=== PATIENT | female | born 1980 | race Caucasian/White ===

== ENCOUNTER → 2020-02-28 08:31 | Outpatient (BNVA) | payer OTHER, SELFPAY | PROVIDERS: PCP Internal Medicine; Visit Provider Physician Assistant | DX: Z76.89 Persons encountering health services in other specified circumstances (principal) ==

== ENCOUNTER → 2020-03-11 12:28 | Outpatient (BNVA) | payer OTHER, SELFPAY | PROVIDERS: PCP Internal Medicine; Visit Provider Physician Assistant | DX: K29.70 Gastritis, unspecified, without bleeding (principal); K21.9 Gastro-esophageal reflux disease without esophagitis; K20.90 Esophagitis, unspecified without bleeding | CPT/HCPCS: 99202 ==

== ENCOUNTER → 2020-03-24 08:17 | Outpatient (BNVA) | payer OTHER, SELFPAY | PROVIDERS: PCP Internal Medicine; Visit Provider Surgery ==

== ENCOUNTER 2020-04-02 09:06 | Outpatient (REF) | payer OTHER, SELFPAY ==
--- NOTE | ~2020-04-02 | XR_ITS ---
EXAMINATION: XR CHEST CLINICAL INFORMATION: Shortness of breath COMPARISON: None TECHNIQUE: 2 views of the chest were obtained. FINDINGS: There are increased linear markings seen in the left perihilar midlung questionable for atelectasis or small infiltrate. There is also question of hilar lymphadenopathy, particularly on the lateral view. The heart does not appear enlarged. Mediastinal contours are unremarkable. The lungs are otherwise clear. There is no pleural effusion or pneumothorax. Bony structures are unremarkable. XR/XR chest 2V IMPRESSION: Question hilar lymphadenopathy and left perihilar midlung atelectasis or small infiltrate. If here are symptoms of infection, follow-up chest x-ray following treatment would be recommended. If radiographic abnormality fails to resolve or there is no clinical suspicion of infection at this time, chest CT scan with IV contrast would be recommended.
--- NOTE | 2020-04-02 09:18 | ECG_ITS ---
Test Reason : SOB Blood Pressure : / mmHG Vent. Rate : 083 BPM Atrial Rate : 083 BPM P-R Int : 164 ms QRS Dur : 084 ms QT Int : 384 ms P-R-T Axes : 054 054 024 degrees QTc Int : 451 ms Normal sinus rhythm Normal ECG No previous ECGs available Referred By: Venecia Rush Electronically Signed By:Favian Sanchez
[2020-04-02 09:54] LABS: MANUAL DIFF FLAG NO
[2020-04-02 10:03] LABS: Basophils Absolute Auto 0.1 X10*3/uL (0.0-0.2); Basophils Percent Auto 0.6 % (0-2); Eosinophils Absolute Auto 0.3 X10*3/uL (0.0-0.4); Eosinophils Percent Auto 3.2 % (0-4); Hematocrit 43.1 % (37-47); Hemoglobin 13.9 g/dl (12.0-16.0); Imm Gran Abs Auto 0.05 X10*3/uL (0.00-0.03); Imm Gran Pct Auto 0.5 % (0.0-0.4); Lymphocytes Absolute Auto 2.3 X10*3/uL (1.2-4.9); Lymphocytes Percent Auto 21.8 % (20-40); Mean Corpuscular HGB Conc 32.3 g/dl (31.0-35.0); Mean Corpuscular Hemoglobin 30.6 pg (27.0-33.0); Mean Corpuscular Volume 94.9 fL (80-98); Mean Platelet Volume 9.8 fL (9.4-12.3); Monocytes Absolute Auto 0.7 X10*3/uL (0.1-1.2); Monocytes Percent Auto 6.7 % (2-11); Neutrophils Percent Auto 67.2 % (45-73); Platelet Count 441 X10*3/uL (160-400); Red Blood Count 4.54 X10*6/uL (4.20-5.50); Red Cell Distribution Width 13.2 % (11.0-16.0); White Blood Count 10.4 X10*3/uL (4.8-10.8)
[2020-04-02 10:24] LABS: Estimated Average Glucose 94 mg/dL; Hemoglobin A1c % 4.9 %
[2020-04-02 10:34] LABS: Alanine Aminotransferase 34 U/L (0-31); Albumin Level 4.5 g/dL (3.5-5.0); Alkaline Phosphatase 89 U/L (39-117); Anion Gap 12 (12-20); Aspartate Amino Transferase 21 U/L (5-31); Bilirubin Total 0.6 mg/dL (0.0-1.0); Blood Urea Nitrogen 13 mg/dL (9-16); C Reactive Protein 1.02 mg/dL (< or = 0.50); Calcium 9.2 mg/dL (8.4-10.2); Carbon Dioxide 26 mmol/L (22-29); Chloride 106 mmol/L (96-108); Cholesterol 151 mg/dL; Estimated Glomerular Filt Rate 52; Glucose Fasting 101 mg/dL (60-99); HDL Cholesterol 26 mg/dL; Iron 87 mcg/dL (30-160); LDL Cholesterol Calculated 81 mg/dl; Percent Iron Saturation 26 % (15-50); Potassium 5.1 mmol/L (3.3-5.1); Sodium 139 mmol/L (135-145); Total Iron Binding Capacity 337 mcg/dL (228-428); Total Protein 7.4 g/dL (6.5-8.0); Triglycerides 222 mg/dL; Unsaturated Iron Binding 250 ug/dL
[2020-04-02 10:47] LABS: Ferritin 63 ng/mL (10-122); TSH reflex Free T4 0.64 uIU/mL (0.32-4.0); Vitamin D 25-OH Total 20.4 ng/mL (>30)
[2020-04-02 11:09] LABS: Folate 13.8 ng/mL (> or = 4.0); Vitamin B12 772 pg/mL (200-900)
[2020-04-03 06:31] LABS: Insulin Level Total 18.2 uIU/mL
[2020-04-04 10:37] LABS: Calcium (PTHI) 9.3 mg/dL (8.6-10.2); PTHI 38 pg/mL (14-64)
[2020-04-05 13:02] LABS: Vitamin B1 <6 nmol/L (8-30)
[2020-04-05 22:52] LABS: Vitamin A 47 mcg/dL (38-98)
[2020-04-08 01:17] LABS: Zinc 127 mcg/dL (60-130)
== END 2020-04-02 09:07 | disposition home or self-care (01) ==
LOC: HO.LAB 09:06
PROVIDERS: Visit Provider Physician Assistant
DX: K20.90 Esophagitis, unspecified without bleeding (principal); K21.9 Gastro-esophageal reflux disease without esophagitis; K29.70 Gastritis, unspecified, without bleeding; Z68.41 Body mass index [BMI] 40.0-44.9, adult; E66.01 Morbid (severe) obesity due to excess calories; R06.02 Shortness of breath
CPT/HCPCS: 36415; 71046; 80053; 80061; 82306; 82607; 82728; 82746; 83036; 83525; 83540; 83970; 84425; 84443; 84590; 84630; 85025; 86140; 93005

== ENCOUNTER 2020-04-07 09:36 | Outpatient (REF) | payer OTHER, SELFPAY ==
--- NOTE | ~2020-04-07 | US_ITS ---
EXAMINATION: US COMPLETE ABDOMEN WITH LIVER ELASTOGRAPHY CLINICAL INFORMATION: Obesity COMPARISON: None. TECHNIQUE: Real-time imaging of the abdominal viscera. Noninvasive ultrasound liver fibrosis assessment is performed using Mirlande ElastPQ point quantification shear wave elastography (pSWE) with a C5-2 MHz transducer. Multiple elastography samples are obtained. FINDINGS: PANCREAS: Normal. ABDOMINAL AORTA: The proximal, middle, and distal aortic segments are normal in caliber. INFERIOR VENA CAVA: Visualized portions are normal. LIVER: Liver echotexture is increased. The liver is normal in size and contour. No focal lesion or intrahepatic biliary duct dilatation. The right lobe measures 15.5 cm in length. The left lobe measures 10.3 cm in length. Portal flow is normal/hepatopedal Shear wave liver elastography median stiffness is 1.5 m/s (reference: normal median stiffness is 1.3 m/s or less). IQR/median stiffness to assess sampling precision is 0.1 (reference: good quality data set is IQR/median stiffness of 0.15 or less). GALLBLADDER: There are gallstones in the gallbladder. The gallbladder is normal in size. The gallbladder wall thickness is normal. There is no pericholecystic fluid. COMMON BILE DUCT: Normal in caliber measuring 0.2 cm in diameter. RIGHT KIDNEY: Normal. No hydronephrosis. No renal calculi or focal parenchymal lesions. The kidney measures 11.5 cm in maximum dimension. LEFT KIDNEY: Normal. No hydronephrosis. No renal calculi or focal parenchymal lesions. The kidney measures 9.6 cm in maximum dimension. SPLEEN: The spleen is slightly enlarged.. The spleen measures 14 cm in maximum dimension. FREE FLUID: None. US/US abdomen comp w elastography IMPRESSION: 1. Impression: Echogenic liver probably representing fatty infiltration. Gallstones. Enlarged spleen. 2. Liver elastography: Liver stiffness is slightly elevated but not suggestive of compensated advanced chronic liver disease. REFERENCE: Society of Radiologists in Ultrasound Liver Stiffness Thresholds (2020): LIVER STIFFNESS THRESHOLDS: *Liver Stiffness equal or less than 1.3 m/s: High probability of being normal. *Liver Stiffness less than 1.7 m/s: In the absence of other known clinical signs, rules out compensated advanced chronic liver disease. *Liver Stiffness 1.7-2.1 m/s: Suggestive of compensated advanced chronic liver disease but need further test for confirmation. *Liver Stiffness over 2.1 m/s: Rules in compensated advanced chronic liver disease. *Liver Stiffness over 2.4 m/s: Suggestive of clinically significant portal hypertension. QUALITY OF DATA SET: *IQR/Median value equal or less than 0.15 implies a quality data set. *IQR/Median value over 0.15 implies a poor quality data set. SIGNIFICANT CHANGE FROM PRIOR EXAM: Significant change if liver stiffness measurement is 10% or greater from prior exam. OTHER CONSIDERATIONS: The stage of liver fibrosis may be overestimated in the setting of acute hepatitis, liver inflammation, elevated liver function tests, hepatic vascular congestion, obstructive cholestasis, non-fasting state, and infiltrative diseases such as amyloidosis and lymphoma. In some patients with NAFLD, the liver stiffness thresholds for compensated advanced chronic liver disease may be lower. In causes other than viral hepatitis and NAFLD, liver stiffness thresholds are not well established.
== END 2020-04-07 09:37 | disposition home or self-care (01) ==
LOC: HO.US 09:36
PROVIDERS: Visit Provider Surgery
DX: Z01.818 Encounter for other preprocedural examination (principal); E66.01 Morbid (severe) obesity due to excess calories; K21.9 Gastro-esophageal reflux disease without esophagitis
CPT/HCPCS: 76705; 76981

== ENCOUNTER → 2020-04-08 08:12 | Outpatient (BNVA) | payer OTHER, SELFPAY | PROVIDERS: PCP Internal Medicine; Visit Provider Dietitian, Registered ==

== ENCOUNTER 2020-04-14 08:37 | Outpatient (REF) | payer OTHER, SELFPAY ==
--- NOTE | ~2020-04-14 | FL_ITS ---
EXAMINATION: XR GI SERIES CLINICAL INFORMATION: Gastroesophageal reflux disease without esophagitis. COMPARISON: None TECHNIQUE: Upper GI air contrast study was performed in upright and lying position. FINDINGS: Following oral administration of thick barium effervescent granules, there is normal propagation bolus from the oral cavity through the pharynx, esophagus into stomach without any evidence of obstruction, narrowing, or stricture. The course, caliber and peristalsis of the stomach, duodenal bulb and the sweep is normal. On placing patient supine and prone lying, there is a mild gastroesophageal reflux without hiatal hernia. The mucosal pattern of the stomach and the duodenum is normal. FLUOROSCOPY TIME: 1.8 minutes DOSE AREA PRODUCT: 33.221 uGy-m2 (microgray-meter squared) FL/FL upper GI series IMPRESSION: Mild gastroesophageal reflux without hiatal hernia.
[2020-04-15 11:41] LABS: H Pylori Breath Test NOT DETECTED (NOT DETECTED)
== END 2020-04-14 08:38 | disposition home or self-care (01) ==
LOC: HO.XRAY 08:37
PROVIDERS: Visit Provider Surgery
DX: Z01.818 Encounter for other preprocedural examination (principal); E66.01 Morbid (severe) obesity due to excess calories; K21.9 Gastro-esophageal reflux disease without esophagitis; K20.90 Esophagitis, unspecified without bleeding; K29.70 Gastritis, unspecified, without bleeding
CPT/HCPCS: 74240; 83013; 99211

== ENCOUNTER → 2020-04-18 08:16 | Outpatient (BNVA) | payer OTHER, SELFPAY | PROVIDERS: PCP Internal Medicine; Visit Provider Surgery ==

== ENCOUNTER 2020-04-22 10:19 | Outpatient (REF) | payer OTHER, SELFPAY ==
--- NOTE | ~2020-04-22 | CT_ITS ---
EXAMINATION: CT CHEST WITH CONTRAST CLINICAL INFORMATION: Localized enlarged lymph nodes. COMPARISON: Chest radiographs dated 04/02/2020. TECHNIQUE: Multidetector volumetric CT imaging of the chest was obtained after the administration of 65 mL of Omnipaque 350 intravenous contrast without immediate adverse reactions. Axial MIP volume rendering provided. Sagittal and coronal reformatted images were obtained. This CT examination was performed using dose optimization techniques as appropriate, variously including the following: *Automated exposure control *Adjustment of mA and/or kV according to patient size (this includes techniques or standardized protocols for targeted exams where dose is matched to indication/reason for exam; i.e. extremities or head) *Use of iterative reconstruction technique DLP: 188 mGy-cm FINDINGS: LUNGS/PLEURA/AIRWAYS: No significant/suspicious pulmonary nodules are seen. Minimal linear atelectasis versus scarring is seen in the right upper lobe at the level the minor fissure without abnormality. There are no pleural effusions. The airways are patent. MEDIASTINUM: The mediastinum is normal. PLEURA: There is no pleural effusion. No pleural mass or thickening. AXILLA: No lymphadenopathy. UPPER ABDOMEN: Diffuse decreased hepatic attenuation and enlargement. Incomplete visualization of the spleen with borderline enlargement measuring approximately 13 cm. No other significant upper abdominal abnormality. OSSEOUS STRUCTURES: Unremarkable. CT/CT chest w con IMPRESSION: 1. Minimal linear atelectasis versus scarring in the right upper lobe. No suspicious pulmonary nodules. No acute cardiopulmonary process. 2. Hepatic steatosis and enlargement and borderline splenic enlargement.
== END 2020-04-22 10:20 | disposition home or self-care (01) ==
LOC: HO.CT 10:19
PROVIDERS: Visit Provider Surgery
DX: R59.0 Localized enlarged lymph nodes (principal)
CPT/HCPCS: 71260; Q9967

== ENCOUNTER 2020-04-24 08:05 | Day surgery (SDC) | payer OTHER, SELFPAY ==
[2020-04-18 11:58] LABS: MANUAL DIFF FLAG NO
[2020-04-18 12:02] LABS: Basophils Percent Auto 0.3 % (0-2); Eosinophils Absolute Auto 0.2 X10*3/uL (0.0-0.4); Eosinophils Percent Auto 2.1 % (0-4); Hematocrit 43.8 % (37-47); Hemoglobin 14.6 g/dl (12.0-16.0); Imm Gran Abs Auto 0.04 X10*3/uL (0.00-0.03); Imm Gran Pct Auto 0.3 % (0.0-0.4); Lymphocytes Absolute Auto 2.7 X10*3/uL (1.2-4.9); Mean Corpuscular HGB Conc 33.3 g/dl (31.0-35.0); Mean Corpuscular Hemoglobin 31.4 pg (27.0-33.0); Mean Corpuscular Volume 94.2 fL (80-98); Mean Platelet Volume 9.8 fL (9.4-12.3); Monocytes Absolute Auto 0.9 X10*3/uL (0.1-1.2); Monocytes Percent Auto 7.8 % (2-11); Neutrophils Absolute Auto 7.7 X10*3/uL (2.0-8.3); Neutrophils Percent Auto 66.5 % (45-73); Platelet Count 388 X10*3/uL (160-400); Red Blood Count 4.65 X10*6/uL (4.20-5.50); Red Cell Distribution Width 12.8 % (11.0-16.0); White Blood Count 11.5 X10*3/uL (4.8-10.8)
[2020-04-18 12:07] LABS: Prothrombin Time 12.2 SEC (10.8-13.0)
[2020-04-18 12:10] LABS: Partial Thromboplastin Time 37.5 SEC (24.1-38.0)
[2020-04-18 12:34] LABS: Alanine Aminotransferase 30 U/L (0-31); Albumin Level 4.6 g/dL (3.5-5.0); Alkaline Phosphatase 89 U/L (39-117); Anion Gap 14 (12-20); Aspartate Amino Transferase 19 U/L (5-31); Bilirubin Total 0.3 mg/dL (0.0-1.0); Blood Urea Nitrogen 12 mg/dL (9-16); Calcium 9.1 mg/dL (8.4-10.2); Carbon Dioxide 24 mmol/L (22-29); Chloride 106 mmol/L (96-108); Estimated Glomerular Filt Rate 59; Glucose Random 100 mg/dL (60-115); Potassium 4.5 mmol/L (3.3-5.1); Sodium 139 mmol/L (135-145); Total Protein 7.4 g/dL (6.5-8.0)
--- NOTE | 2020-04-23 09:47 | HO.ANESPROP2 ---
Documented by User: Rhonda Jimenez 04/23/20 09:48 HPI - Anesthesia Eval Consult details Narrative: 40yo F for Cholecystectomy Laparoscopic PMFSH Active Problems Active Problems: All Active Problems (Updated 04/18/20 @ 11:11 by Ata Pedro MD) BMI 38.0-38.9,adult (Acute) Obesity (Acute) Nausea (Acute) Cholelithiasis (Acute) Vitamin B1 deficiency (Acute) Hilar lymphadenopathy (Acute) Vitamin D deficiency (Acute) Depression (Acute) Esophagitis (Acute) GERD (gastroesophageal reflux disease) (Acute) Gastritis (Acute) BMI 40.0-44.9, adult (Acute) Morbid obesity (Acute) Past Medical History Medical History Asthma BMI 40.0-44.9, adult Depression Esophagitis Gastritis GERD (gastroesophageal reflux disease) Morbid obesity Family History Family History Mother Bullous emphysema Diabetes Heart disease Father Heart disease Diabetes Brother No problems noted. Sister No problems noted. Son No problems noted. Son No problems noted. Surgical History Surgical History Hx of section Hx of endoscopy Social History Social History Alcohol intake: never Smoking Status: Former smoker Smoking Quit Date: 04/21/20 Use of substances other than those prescribed or required for medical reasons: No Advance Directives: No Advance Directives Information Provided: Yes Meds Allergies Allergy/AdvReac Type Severity Reaction Status Date / Time No Known Allergies Allergy Verified 04/24/20 08:37 Home Medications Medication Instructions Recorded Confirmed Last Taken Type crisaborole 2 % topical ointment TOPICAL BID 03/11/20 03/24/20 Unknown History folic acid 1 mg tablet 1 mg PO DAILY 03/11/20 03/24/20 Unknown History nicotine (polacrilex) 4 mg gum 4 mg PO Q2H 03/11/20 03/24/20 Unknown History pantoprazole 40 mg tablet,delayed 40 mg PO DAILY 03/11/20 03/24/20 Unknown History release Exam Exam Date and Time: April 23, 2020 0947 Pertinent Lab Results Pertinent Lab Results: Laboratory Tests 04/18/20 04/18/20 04/18/20 11:28 11:45 11:45 WBC 11.5 H RBC 4.65 Hgb 14.6 Hct 43.8 MCV 94.2 MCH 31.4 MCHC 33.3 RDW 12.8 Plt Count 388 MPV 9.8 Immature Gran % (Auto) 0.3 Neut % (Auto) 66.5 Lymph % (Auto) 23.0 [place] % (Auto) 7.8 Eos % (Auto) 2.1 Baso % (Auto) 0.3 Lymph # (Auto) 2.7 [place] # (Auto) 0.9 Eos # (Auto) 0.2 Baso # (Auto) 0.0 Abs Immat Gran (auto) 0.04 H Absolute Neuts (auto) 7.7 Absolute Nucleated RBC 0.000 Nucleated RBC % (auto) 0.0 PT 12.2 INR 1.0 APTT 37.5 Sodium Potassium Chloride Carbon Dioxide Anion Gap BUN Creatinine Estim Creat Clear Calc Estimated GFR Random Glucose Calcium Total Bilirubin AST ALT Alkaline Phosphatase Total Protein Albumin Blood Type O Positive Antibody Screen NEGATIVE 04/18/20 11:45 WBC RBC Hgb Hct MCV MCH MCHC RDW Plt Count MPV Immature Gran % (Auto) Neut % (Auto) Lymph % (Auto) [place] % (Auto) Eos % (Auto) Baso % (Auto) Lymph # (Auto) [place] # (Auto) Eos # (Auto) Baso # (Auto) Abs Immat Gran (auto) Absolute Neuts (auto) Absolute Nucleated RBC Nucleated RBC % (auto) PT INR APTT Sodium 139 Potassium 4.5 Chloride 106 Carbon Dioxide 24 Anion Gap 14 BUN 12 Creatinine 1.04 Estim Creat Clear Calc TNP Estimated GFR 59 Random Glucose 100 Calcium 9.1 Total Bilirubin 0.3 AST 19 ALT 30 Alkaline Phosphatase 89 Total Protein 7.4 Albumin 4.6 Blood Type Antibody Screen Narrative Narrative: EKG 03/2020 Normal sinus rhythm Normal ECG No previous ECGs available Assessment and Plan Assessment Anesthesia Assessment: Chart Reviewed Documented by User: Dc Tim 04/24/20 10:15 [facility] Past Medical History Medical History Asthma BMI 40.0-44.9, adult Depression Esophagitis Gastritis GERD (gastroesophageal reflux disease) Morbid obesity Family History Family History Mother Bullous emphysema Diabetes Heart disease Father Heart disease Diabetes Brother No problems noted. Sister No problems noted. Son No problems noted. Son No problems noted. Surgical History Surgical History Hx of section Hx of endoscopy Social History Social History Alcohol intake: never Smoking Status: Former smoker Smoking Quit Date: 04/21/20 Use of substances other than those prescribed or required for medical reasons: No Advance Directives: No Advance Directives Information Provided: Yes Meds Allergies Allergy/AdvReac Type Severity Reaction Status Date / Time No Known Allergies Allergy Verified 04/24/20 08:37 Home Medications Medication Instructions Recorded Confirmed Last Taken Type crisaborole 2 % topical ointment TOPICAL BID 03/11/20 03/24/20 Unknown History folic acid 1 mg tablet 1 mg PO DAILY 03/11/20 03/24/20 Unknown History nicotine (polacrilex) 4 mg gum 4 mg PO Q2H 03/11/20 03/24/20 Unknown History pantoprazole 40 mg tablet,delayed 40 mg PO DAILY 03/11/20 03/24/20 Unknown History release Exam Airway Mallampati Class: II TM Dist: >3cm Neck ROM: Full Loose/Missing/Broken Teeth: No Heart: [id number] Lungs: cta b/l Assessment and Plan Assessment Anesthesia Assessment: Anesthesia Plan Discussed, PAT Visit and Chart Reviewed Final Anesthetic Review NPO: Yes ASA Class: II Final Preanesthetic Review: No Changes in Pt Med Stat, Meds/Allgs Chart Reviewed, Consent Obtained/Reviewed and Anes Risks/Benef Reviewed Patient Risk: Low Procedure Risk: Low Assessment/Block/Sedation in SS: Assess/Block/Sedation-SS Anesthetic Plan Anesthetic Plan: GA and Agree w/ Assess. and Plan Disposition: Standard PACU
--- NOTE | 2020-04-23 19:13 | MHC.SHP ---
Pre-Procedural Eval Section A The patient is an INPATIENT: Yes The History & Physical has been completed within 30 days and I have reviewed it.: No Section B Chief Complaint: cholecystitis, labs Details of Present Illness: cholelithiasis Relevant Family History (Specify if Yes): No Relevant Social History: None Present Medications: see Short Stay Collaborative assessment Medical History: No relevant PMH History of Previous Operations: No relevant previous surgery Allergies: Allergies Allergy/AdvReac Type Severity Reaction Status Date / Time No Known Allergies Allergy Verified 03/24/20 12:32 Review of Systems Sugical H&P ROS: Negative: Constitution, Cardiovascular, Respiratory, Neurological, Psychiatric, Hem-Onc, Allergic/Immunologic, Gastrointestinal, Genitourinary, Musculoskeletal, Integumentary, Endocrine and Eyes/Ears/Nose/Throat Exam Surgical H&P Exam: Normal: HEENT, Normal: Heart, Normal: Lungs, Normal: Extremities, Normal: Abdomen, Normal: Skin and Normal: Neurological Plan Diagnosis/Plan: Unchanged I have reviewed the history and physical and performed a pertinent physical examination on my patient. No changes have occurred unless specified.
[2020-04-24] VITALS (15 sets, daily range): BP systolic 114–134; BP diastolic 57–76; PULSE 86–103; RESP 14–18; TEMP 36.2–36.4; O2SAT 94–99; BMI 38.9
[2020-04-24 08:55] LABS: UPreg QC Valid YES
[2020-04-24 08:56] LABS: Urine Pregnancy NEGATIVE (NEGATIVE)
[2020-04-24 09:08] LABS: COVID-19 Test Negative (Negative)
[2020-04-24] MEDS: Lactated Ringers 1,000 ML 100 ML IVCONT (09:10)
--- NOTE | 2020-04-24 10:08 | PM.OP ---
Brief Operative Note Date of Service: 04/24/20 Pre-op diagnosis: Cholelithiasis Post-op diagnosis: same Procedure: PROCEDURE DATE: 04/24/2020 PREOPERATIVE DIAGNOSIS: Symptomatic cholelithiasis, morbid obesity with a body mass index of 41.8 kg/sq. meters and comorbidities including GERD, asthma, depression POSTOPERATIVE DIAGNOSIS: Same as above. Cholecystitis PROCEDURE: Laparoscopic cholecystectomy Surgeon: Jm Pedro M.D., Ph.D. Printing Services Coordinator: Makenzie Wheatley PA-C Anesthesia: General endotracheal anesthesia Estimated blood loss: Minimal FINDINGS AND PROCEDURE: OPERATIVE INDICATIONS: The patient is a 40 year old female known to me who was initially seen in my office for evaluation for refractory morbid obesity. During the preoperative workup, the patient was found to have cholelithiasis which appears to be symptomatic. Risks and complications of the surgery were discussed with the patient in advance, particularly the postoperative bleeding, infection, DVT or PE, bile leak, major bile duct injury that may require additional surgical intervention, cardiac, pulmonary or renal complications among others. The patient understood the risks and was in agreement with the plan. PROCEDURE: After informed consent was obtained by the patient, the patient was transferred to the Operating Room and was placed in the supine position. The patient was given preoperative antibiotics and after successful induction of general anesthesia, pneumatic compression devices were placed. The patient was then prepped and draped in the usual sterile manner and abdominal access was established with the Jerome technique. The abdomen was insufflated with C02 to a pressure of 15 mmHg. A 5 mm Versi-step port was placed, slightly to the right and superior from the umbilicus. The 5 mm camera was introduced. I inspected the area where the port had been placed and there was no injury. The patient was then placed initially in a steep reverse Trendelenburg position and three additional ports were placed, specifically a 12 mm Versi-step port just to the right of the midline below the xiphoid process and two 5 mm Versi-step ports at the right upper quadrant and right flank. At that point the patient was placed in a steep reverse Trendelenburg position tilted to the left side. The gallbladder was retracted cephalad and laterally. The peritoneal attachments of the gallbladder at the triangle of Calot posteriorly and anteriorly were taken down. There was inflammation and scarring at the area of the cystic duct and artery and could not be seen clearly or . This was also hindered by a small hole inadvertently made in the gallbladder wall from which some bile was leaked outside. The hole was temporarirly closed with one clip. I cleaned the liver bed just behind the cystic artery to make sure there was no additional structures in this area. Once we confirmed that there were no other structures were entering into the gallbladder and there were no other structures in the area, the cystic duct was clipped with two clips proximally, one distally and were cut in-between. The cystic artery was identified and was clipped with one clip only as it was small and there was no space for a second clip. I then using the electrocautery we slowly took down the gallbladder from the liver bed. Small areas of bleeding from the liver parenchyma were controlled with the cautery. After the gallbladder was completely detached from the liver bed, it was placed in an EndoCatch bag and was removed without difficulty from the xiphoid port. I then inspected the clips at the cystic duct and artery and were both in place. There was no active bleeding from the liver bed. I thoroughly irrigated the right upper quadrant and we removed all fluid until clear. At that point the patient was placed in supine position. I also suctioned out any remaining fluid from the pelvis. I deflated the abdomen and we removed all ports under direct vision and no bleeding was noted from any of the port sites. The fascia of the 12 mm port was closed using a #1 Polysorb suture. 60cc 0.25% Marcaine with 10mg of Dexamethasone were used to infiltrate the fascial closure as well as all skin incisions. The wounds were irrigated with saline mixed with antibiotic solution and then the skin was closed with 4-0 Monocryl subcuticular sutures antibiotic-coated. Steri-strips and OpSites were used to cover all incisions. The patient extubated and was transferred in stable condition to the Recovery Room for further care. I was present and performed all steps of the procedure. Ms. Wheatley was the first line production supervisor. There were no residents to assist with this case. Jm Pedro M.D., Ph.D., F.A.C.S. Surgeon: Ata Pedro MD Anesthesia: GETA, local and other (TAP block) Printing Services Coordinator: Makenzie Wheatley Estimated blood loss (mL): 10 IV fluids (mL): 1,000 Urine output (mL): 0 (No Beck[place] to record) Pathology: other (Gallbladder) Condition: stable Disposition: PACU
[2020-04-24] MEDS: ondansetron HCL 4 MG/2 ML VIAL IVPUSH (12:38)
[2020-04-24] MEDS: fentaNYL citrate/PF 100 MCG/2 ML VIAL 50 MCG IVPUSH ×2 (12:40→13:00)
== END 2020-04-24 14:40 ==
LOC: HO.SSS 08:05
PROVIDERS: Nurse Practitioner; Visit Provider Surgery
PROC: 0FT44ZZ Resection of Gallbladder, Percutaneous Endoscopic Approach (ICD-10-PCS; CPT 47562; principal; 2020-04-24 10:10)
DX: K80.10 Calculus of gallbladder with chronic cholecystitis without obstruction (principal); E66.01 Morbid (severe) obesity due to excess calories; Z68.38 Body mass index [BMI] 38.0-38.9, adult; E51.9 Thiamine deficiency, unspecified; E55.9 Vitamin D deficiency, unspecified; J45.909 Unspecified asthma, uncomplicated; K21.9 Gastro-esophageal reflux disease without esophagitis; Z79.899 Other long term (current) drug therapy; F17.210 Nicotine dependence, cigarettes, uncomplicated
CPT/HCPCS: 47562; 36415; 80053; 81025; 85025; 85610; 85730; 86850; 86900; 87635; 88304; J0131; J0690; J1100; J2250; J2405; J3010

== ENCOUNTER → 2020-05-06 10:33 | Outpatient (BNVA) | payer OTHER, SELFPAY | PROVIDERS: Visit Provider Dietitian, Registered ==

== ENCOUNTER → 2020-05-12 08:47 | Outpatient (BNVA) | payer OTHER, SELFPAY | PROVIDERS: Visit Provider Surgery | DX: E66.9 Obesity, unspecified (principal); Z68.37 Body mass index [BMI] 37.0-37.9, adult; K20.90 Esophagitis, unspecified without bleeding; K21.9 Gastro-esophageal reflux disease without esophagitis; Z71.3 Dietary counseling and surveillance | CPT/HCPCS: 99212 ==

== ENCOUNTER 2020-05-24 09:17 | Outpatient (REF) | payer OTHER, SELFPAY ==
[2020-05-24 10:51] LABS: MANUAL DIFF FLAG NO
[2020-05-24 11:03] LABS: Basophils Percent Auto 0.2 % (0-2); Eosinophils Absolute Auto 0.2 X10*3/uL (0.0-0.4); Eosinophils Percent Auto 1.9 % (0-4); Hematocrit 45.6 % (37-47); Hemoglobin 14.8 g/dl (12.0-16.0); Imm Gran Abs Auto 0.05 X10*3/uL (0.00-0.03); Imm Gran Pct Auto 0.4 % (0.0-0.4); Lymphocytes Absolute Auto 2.2 X10*3/uL (1.2-4.9); Lymphocytes Percent Auto 18.7 % (20-40); Mean Corpuscular HGB Conc 32.5 g/dl (31.0-35.0); Mean Corpuscular Hemoglobin 30.9 pg (27.0-33.0); Mean Corpuscular Volume 95.2 fL (80-98); Monocytes Absolute Auto 0.7 X10*3/uL (0.1-1.2); Monocytes Percent Auto 6.2 % (2-11); Neutrophils Absolute Auto 8.3 X10*3/uL (2.0-8.3); Neutrophils Percent Auto 72.6 % (45-73); Platelet Count 421 X10*3/uL (160-400); Red Blood Count 4.79 X10*6/uL (4.20-5.50); Red Cell Distribution Width 12.5 % (11.0-16.0); White Blood Count 11.5 X10*3/uL (4.8-10.8)
[2020-05-24 11:06] LABS: Estimated Average Glucose 97 mg/dL
[2020-05-24 11:10] LABS: Prothrombin Time 11.9 SEC (10.8-13.0)
[2020-05-24 11:23] LABS: Alanine Aminotransferase 39 U/L (0-31); Albumin Level 4.4 g/dL (3.5-5.0); Alkaline Phosphatase 101 U/L (39-117); Anion Gap 16 (12-20); Aspartate Amino Transferase 21 U/L (5-31); Bilirubin Total 0.4 mg/dL (0.0-1.0); Blood Urea Nitrogen 12 mg/dL (9-16); Calcium 9.4 mg/dL (8.4-10.2); Carbon Dioxide 24 mmol/L (22-29); Chloride 103 mmol/L (96-108); Cholesterol 157 mg/dL; Estimated Glomerular Filt Rate 54; Glucose Random 111 mg/dL (60-115); HDL Cholesterol 26 mg/dL; LDL Cholesterol Calculated 63 mg/dl; Potassium 4.8 mmol/L (3.3-5.1); Sodium 138 mmol/L (135-145); Total Protein 7.2 g/dL (6.5-8.0); Triglycerides 340 mg/dL
[2020-05-24 11:26] LABS: Partial Thromboplastin Time 38.7 SEC (24.1-38.0)
[2020-05-24 11:44] LABS: TSH reflex Free T4 0.58 uIU/mL (0.32-4.0)
[2020-05-26 13:43] LABS: Insulin Level Total 28.1 uIU/mL
== END 2020-05-24 09:18 | disposition home or self-care (01) ==
LOC: HO.LAB 09:17
PROVIDERS: PCP Internal Medicine; Visit Provider Surgery
DX: E66.9 Obesity, unspecified (principal); Z68.38 Body mass index [BMI] 38.0-38.9, adult; K20.90 Esophagitis, unspecified without bleeding; K21.9 Gastro-esophageal reflux disease without esophagitis
CPT/HCPCS: 36415; 80053; 80061; 83036; 83525; 84443; 85025; 85610; 85730; 86140

== ENCOUNTER 2020-05-27 05:47 | Inpatient (IN) | payer OTHER, SELFPAY ==
[2020-05-23 10:27] VITALS: BMI 37.0
--- NOTE | 2020-05-25 13:23 | MHC.SHP ---
Pre-Procedural Eval Section A The patient is an INPATIENT: Yes The History & Physical has been completed within 30 days and I have reviewed it.: Yes Section B Chief Complaint: obesity Details of Present Illness: Obesity Relevant Family History (Specify if Yes): No Relevant Social History: None Present Medications: see Short Stay Collaborative assessment Medical History: No relevant PMH History of Previous Operations: No relevant previous surgery Allergies: Allergies Allergy/AdvReac Type Severity Reaction Status Date / Time No Known Allergies Allergy Verified 05/23/20 10:09 Review of Systems Sugical H&P ROS: Negative: Constitution, Cardiovascular, Respiratory, Neurological, Psychiatric, Hem-Onc, Allergic/Immunologic, Gastrointestinal, Genitourinary, Musculoskeletal, Integumentary, Endocrine and Eyes/Ears/Nose/Throat Exam Surgical H&P Exam: Normal: HEENT, Normal: Heart, Normal: Lungs, Normal: Extremities, Normal: Abdomen, Normal: Skin and Normal: Neurological Plan Diagnosis/Plan: Unchanged I have reviewed the history and physical and performed a pertinent physical examination on my patient. No changes have occurred unless specified.
--- NOTE | 2020-05-26 10:05 | HO.ANESPROP2 ---
Documented by User: Rhonda Jimenez 05/26/20 10:07 HPI - Anesthesia Eval Consult details Narrative: 40yo F for Gastrectomy Sleeve s/p lap karl with GA- ETT 7 04/24/20 [facility] Active Problems Active Problems: All Active Problems (Updated 05/12/20 @ 09:00 by Ata Pedro MD) Vitamin D deficiency (Acute) Hilar lymphadenopathy (Acute) Vitamin B1 deficiency (Acute) Cholelithiasis (Acute) Nausea (Acute) Obesity (Acute) BMI 38.0-38.9,adult (Acute) BMI 37.0-37.9, adult (Acute) Depression (Acute) Esophagitis (Acute) GERD (gastroesophageal reflux disease) (Acute) Gastritis (Acute) BMI 40.0-44.9, adult (Acute) Morbid obesity (Acute) Past Medical History Medical History Asthma BMI 40.0-44.9, adult Depression Esophagitis Gastritis GERD (gastroesophageal reflux disease) Morbid obesity Family History Family History Mother Bullous emphysema Diabetes Heart disease Father Heart disease Diabetes Brother No problems noted. Sister No problems noted. Son No problems noted. Son No problems noted. Surgical History Surgical History Hx laparoscopic cholecystectomy Hx of section Hx of endoscopy Social History Social History Are you a primary neonatal critical care nurse to a significant other at home: No Do you presently have visiting nurse or other home services: No Alcohol intake: never Smoking Status: Former smoker Packs Per Day: 0.25 Cigarettes Per Day: 5.0 Years Smoked: 30 Smoked in Last 30 Days: Yes Smoking Quit Date: 05/21/20 Patient Interested in Nicotine Replacement: Yes Patient Given Instructions on How to Stop Smoking: Yes Date Education Initiated: 05/23/20 Use of substances other than those prescribed or required for medical reasons: Yes Substance Use Type Other:: THC gummies Substance Use Frequency: Occasionally Have you been hit, kicked, punched, or otherwise hurt by someone within the past year? If so, by whom?: No Advance Directives: No Advance Directives Information Provided: No Advance Directives on File: No Recently lost weight without trying: No Meds Allergies Allergy/AdvReac Type Severity Reaction Status Date / Time No Known Allergies Allergy Verified 05/23/20 10:09 Home Medications Medication Instructions Recorded Confirmed Last Taken Type crisaborole 2 % topical ointment TOPICAL BID 03/11/20 05/12/20 Unknown History folic acid 1 mg tablet 1 mg PO DAILY 03/11/20 05/23/20 05/15/20 History nicotine (polacrilex) 4 mg gum 4 mg PO Q2H 03/11/20 05/23/20 Unknown History pantoprazole 40 mg tablet,delayed 40 mg PO DAILY 03/11/20 05/23/20 Unknown History release dupilumab 300 mg/2 mL subcutaneous 300 mg SUBCUT Q2W 05/12/20 05/23/20 Unknown History syringe Exam Exam Date and Time: May 26, 2020 1005 Height,Weight and Vital Signs: Height 5 ft 5 in Weight 101.151 kg Pertinent Lab Results Pertinent Lab Results: Laboratory Tests 05/24/20 09:54 Blood Type O Positive Antibody Screen NEGATIVE Laboratory Tests 05/24/20 05/24/20 09:54 09:54 WBC 11.5 H Hgb 14.8 Hct 45.6 Plt Count 421 H Sodium 138 Potassium 4.8 Chloride 103 Carbon Dioxide 24 BUN 12 Creatinine 1.13 Narrative Narrative: EKG 03/2020 Normal sinus rhythm Normal ECG No previous ECGs available Assessment and Plan Assessment Anesthesia Assessment: Chart Reviewed Documented by User: Lavern Mccallum 05/27/20 07:35 [facility] Past Medical History Medical History Asthma BMI 40.0-44.9, adult Depression Esophagitis Gastritis GERD (gastroesophageal reflux disease) Morbid obesity Family History Family History Mother Bullous emphysema Diabetes Heart disease Father Heart disease Diabetes Brother No problems noted. Sister No problems noted. Son No problems noted. Son No problems noted. Family history of problems with anesthesia: No Surgical History Surgical History Hx laparoscopic cholecystectomy Hx of section Hx of endoscopy History of Problems with Anesthesia: No Social History Social History Are you a primary neonatal critical care nurse to a significant other at home: No Do you presently have visiting nurse or other home services: No Alcohol intake: never Smoking Status: Former smoker Packs Per Day: 0.25 Cigarettes Per Day: 5.0 Years Smoked: 30 Smoked in Last 30 Days: Yes Smoking Quit Date: 05/21/20 Patient Interested in Nicotine Replacement: Yes Patient Given Instructions on How to Stop Smoking: Yes Date Education Initiated: 05/23/20 Use of substances other than those prescribed or required for medical reasons: Yes Substance Use Type Other:: THC gummies Substance Use Frequency: Occasionally Have you been hit, kicked, punched, or otherwise hurt by someone within the past year? If so, by whom?: No Advance Directives: No Advance Directives Information Provided: No Advance Directives on File: No Recently lost weight without trying: No Meds Allergies Allergy/AdvReac Type Severity Reaction Status Date / Time No Known Allergies Allergy Verified 05/23/20 10:09 Home Medications Medication Instructions Recorded Confirmed Last Taken Type crisaborole 2 % topical ointment TOPICAL BID 03/11/20 05/12/20 Unknown History folic acid 1 mg tablet 1 mg PO DAILY 03/11/20 05/23/20 05/15/20 History nicotine (polacrilex) 4 mg gum 4 mg PO Q2H 03/11/20 05/23/20 Unknown History pantoprazole 40 mg tablet,delayed 40 mg PO DAILY 03/11/20 05/23/20 Unknown History release dupilumab 300 mg/2 mL subcutaneous 300 mg SUBCUT Q2W 05/12/20 05/23/20 Unknown History syringe Exam Height,Weight and Vital Signs: Vital Signs Temp Pulse Resp BP Pulse Ox 05/27/20 06:19 97 F 87 18 108/49 L 96 Lab Results 05/24/20 05/27/20 05/27/20 Range/Units 09:54 06:08 06:08 Urine Test NEGATIVE (NEGATIVE) COVID-19 (DARCY) Negative (Negative) COVID-19 Clin Com See Note Blood Type O Positive Antibody Screen NEGATIVE Airway Mallampati Class: II TM Dist: >3cm Neck ROM: Full Loose/Missing/Broken Teeth: Yes (2 molars) Heart: RRR Lungs: CTAB Assessment and Plan Assessment Anesthesia Assessment: Anesthesia Plan Discussed and Chart Reviewed Final Anesthetic Review NPO: Yes ASA Class: II Final Preanesthetic Review: No Changes in Pt Med Stat, Meds/Allgs Chart Reviewed, Consent Obtained/Reviewed and Anes Risks/Benef Reviewed Patient Risk: Intermediate Procedure Risk: Intermediate Assessment/Block/Sedation in SS: Assess/Block/Sedation-SS Anesthetic Plan Anesthetic Plan: GA Disposition: Standard PACU
[2020-05-27] VITALS (16 sets, daily range): BP systolic 108–176; BP diastolic 49–102; PULSE 87–110; RESP 14–20; TEMP 36.1–37.1; O2SAT 92–100
[2020-05-27 06:28] LABS: UPreg QC Valid YES; Urine Pregnancy NEGATIVE (NEGATIVE)
[2020-05-27 06:38] LABS: COVID-19 Test Negative (Negative)
[2020-05-27] MEDS: Lactated Ringers 1,000 ML 100 ML IVCONT (06:49)
[2020-05-27] MEDS: Lactated Ringers 1,000 ML 999 ML IV (06:50)
--- NOTE | 2020-05-27 10:28 | P.BOP_ITS ---
Brief Operative Note Date of Service: 05/27/20 Pre-op diagnosis: Morbid obesity with comorbidities Post-op diagnosis: same (& diaphragmatic hernia) Procedure: INITIAL PATIENT BMI ON PRESENTATION AT OUR OFFICE: 41.8 kg/m2 LAST BMI BEFORE SURGERY: 37.5 kg/m2 COMORBIDITIES: GERD, asthma, hypertriglyceremia, liver steatosis, liver fibrosis, depression The patient participated in an intensive weekly lifestyle intervention and exercise program during which the patient has lost between the initial office visit and the last preoperative visit 26.2lbs, or 10.4% of initial actual body weight. The patient met the BMI-criteria for bariatric surgery based on the BMI on initial presentation. The patient should not be penalized for achieving such weight loss because it is not sustainable long-term without surgical intervention and it was achieved in preparation for bariatric surgery under my direction and based on my published research ([email or web address] and [email or web address]) that a 10% preoperative weight loss improves long-term weight loss after surgery and reduces perioperative complications. Insurance carriers such as [facility] have endorsed my recommendations and have included in their policies criteria to include a 10% preoperative weight loss requirement. PROCEDURE: Esophago-gastroscopy, laparoscopic repair of incarcerated diaphragmatic hernia, laparoscopic lysis of adhesions, laparoscopic sleeve gastrectomy and laparoscopic gastropexy INDICATIONS: This is a 40 year-old female who was electively scheduled for laparoscopic, possibly open sleeve gastrectomy. The risks and complications of the procedure were discussed with the patient in advance, particularly the possibility of ; pulmonary embolism; staple line leak; bleeding; GERD; cardiac, pulmonary, or renal complications; as well as long-term problems such as insufficient weight loss, vitamin deficiency, strictures, or ulcers. The patient understood all the risks, and was in agreement to proceed with surgery. DESCRIPTION OF PROCEDURE: After informed consent was obtained from the patient, the patient was given preoperative antibiotics, and was transferred to the operating room. After successful induction of general anesthesia, a Beckwith catheter and pneumatic compressive devices were placed on both lower extremities. An upper endoscopy was performed next. The oropharynx and esophagus appeared to be within normal limits. There was a diaphragmatic hernia present of moderate size consistent with the findings of the preoperative upper GI. The stomach was entered. Then after all fluid and air were suctioned and the stomach was fully decompressed, the scope was withdrawn and secured in the mid esophagus. The patient was then prepped and draped in the usual sterile manner, and abdominal access was established at the right upper quadrant with the Jerome technique. A 12 mm blunt port was inserted, and the abdomen was insufflated with CO2 to a pressure of 15 mmHg. Under direct visualization, additional ports were placed, specifically two 5 mm Versi-step ports to the left upper quadrant, and a 5 mm Versi-Step port to the right upper quadrant. 1% lidocained plan was used to infiltrate all port sites as well as all fascia defects. Following that, the patient was placed in a steep reverse Trendelenburg position. An additional 5 mm port was placed to the right flank for the Mediflex retractor that was used to retract the left lobe of the liver. The gastro-esophageal fat pad was opened with the ultrasonic device (Thunderbeat, Olympus) and the anterior esophagus and hiatus were exposed. The angle of His was opened with the ultrasonic device the fundus of the stomach from any diaphragmatic and splenic attachments. I then opened the gastrocolic ligament between the transverse colon and the greater curvature of the stomach with the ultrasonic device to enter the lesser sac and facilitate the ligation of the short gastric vessels. I started at a mid-point along the greater curvature and using the Thunderbeat, all short gastric vessels were divided all the way to the angle of His until the left narda was completely dissected at its entirety. I then divided the gastro-colic ligament distally to a distance of about 3-4 cm proximal to the esophagus. There were extensive congenital adhesions between the pancreas and posterior gastric wall. Those were lysed completely with the ultrasonic device. Adhesiolysis took approximately 45 min to complete. There was an obvious significant-sized hiatal hernia. I continued dissecting along the hiatus toward the left narda and the angle of His. I fully mobilized the fat pad that was incarcerated in the hernia. I then continued by dissecting even further into the posterior retro-esophageal space all the way to the angle of His. I continued to mobilize the esophagus into the mediastinum circumferentially. Both vagal nerves were seen and preserved. At that point, I was able to have at least 3 to 5 cm of esophagus into the abdomen. After I completely mobilized the esophagus from both the left and right narda and I had a good mobilization of the esophagus circumferentially, I closed the hernia defect with three interrupted #0 Surgidac sutures using the Endo Stitch device, two of which were placed posterior and one anterior to the esophagus. The stomach was then divided transversely with two Endo IGNE-45 and four INGE-60 articulating purple loads using the Phoenix S&T stapler and loads. Every effort was made that the gastric sleeve had a tubular shape and an even caliber throughout. Once the sleeve resection was completed, the staple line of the gastric sleeve was reinforced with Hemoclips. The resected stomach was retrieved without difficulty from the Jerome port. A gastropexy was then performed in order to prevent postoperative GERD and partial gastric volvulus. Several interrupted 2.0 Surgidac sutures were placed between the sleeve's staple line and the previously divided greater omentum and gastro-colic ligament using the Endo-Stitch device. An upper endoscopy was performed. There was no narrowing at the GE junction. The scope was easily advanced all the way to the pylorus which was clearly visualized. There was no narrowing anywhere and the sleeve's caliber was even throughout. The sleeve's staple line was inspected and there was no evidence of ischemia, bleeding or dehiscence. At that point the gastroscope was withdrawn from the patient?s mouth while we were decompressing the bowel and the stomach from any remaining air. I looked into the lesser sac to see how the sleeve was situating and it was situating well. There was no bleeding from the staple line, spleen, or short gastric vessels. The Mediflex retractor was removed, and the undersurface of the liver was inspected and there was no bleeding. The patient was placed in supine position. I closed the fascial defect of the 12 mm port site with a figure of eight #1 Polysorb suture. Then 100 cc 0.25 % Marcaine plain with 10 mg of Dexamethasone were used to infiltrate the fascial closure as well as all skin incisions. At this point, the abdomen was deflated, all ports were removed under direct vi leah, and no bleeding was noted from any of the port sites. The skin incisions were irrigated with saline and were closed with 4-0 absorbable monofilament sutures. Steri-Strips and OpSites were used to cover all incisions. The patient was extubated and was transferred in stable condition to the recovery room for further care. I was present and performed all brenner parts of the procedure. Ms. Wheatley was the nursing assistant. There were no residents to assist with this case. Jm Pedro MD, PhD, FACS Surgeon: Ata Pedro MD Anesthesia: GETA, local and other (TAP block) Central Office Technician: Makenzie Wheatley Estimated blood loss (mL): 20 IV fluids (mL): 2,500 Urine output (mL): 0 Pathology: other (stomach) Condition: stable Disposition: PACU
--- NOTE | 2020-05-27 10:30 | P.DS_ITS ---
DS: Providers Provider Date of Service: 05/28/20 Date of admission: 05/27/20 05:47 Primary care physician: Unknown Physician DS: Medications Discharge Medications Home Medications: Home Medications Medication Instructions Recorded Confirmed crisaborole 2 % topical ointment TOPICAL BID 03/11/20 05/12/20 folic acid 1 mg tablet 1 mg PO DAILY 03/11/20 05/23/20 nicotine (polacrilex) 4 mg gum 4 mg PO Q2H 03/11/20 05/23/20 pantoprazole 40 mg tablet,delayed 40 mg PO DAILY 03/11/20 05/23/20 release dupilumab 300 mg/2 mL subcutaneous 300 mg SUBCUT Q2W 05/12/20 05/23/20 syringe Previous Rx's Medication Instructions Recorded cholecalciferol (vitamin D3) 125 125 mcg PO DAILY #30 cap 04/02/20 mcg (5,000 unit) capsule thiamine HCl (vitamin B1) 100 mg 100 mg PO DAILY 30 Days #30 tab 04/08/20 tablet ondansetron HCl 4 mg tablet 4 mg PO Q12H #20 tab 04/17/20 sucralfate 100 mg/mL oral 10 ml PO BID #400 ml 05/12/20 suspension DS: Summary Time Spent with Patient Time attestation: ADMITTING DIAGNOSIS: morbid obesity, asthma, diaphragmatic hernia DISCHARGE DIAGNOSIS: same, s/p laparoscopic sleeve gastrectomy and repair of diaphragmatic hernia PAST SURGICAL HISTORY: section, lap karl PROCEDURE: upper endoscopy, laparoscopic sleeve gastrectomy and repair of diaphragmatic hernia DISCHARGE SUMMARY: History of Present Illness: The patient is a 40 year-old woman with a BMI of 41.6 kg/m2 and associated co- morbidities as described above. The patient had extensive work-up,lost 23.4 lbs preoperatively and was electively scheduled for laparoscopic, possible open sleeve gastrectomy and gastropexy. Risks and complications of the surgery were discussed with the patient in advance, particularly the possibility of , pulmonary embolism, anastomotic leak, bleeding, bowel injury, GERD, cardiac, renal or pulmonary complications. The patient understood all the risks and was in agreement with the surgical plan. Hospital Course: The patient underwent an uneventful laparoscopic sleeve gastrectomy with gastropexy and repair of diaphragmatic hernia on the day of admission. Postoperatively, the patient was transferred to the surgical floor. The patient was on IV Acetaminophen and IV dilaudid for pain control. Patient was started on bariatric phase 1 diet POD #0. On postoperative day one, the patient was feeling well without nausea, vomiting, fevers, or tachycardia. The patient had some mild incisional pain. The abdomen was soft. On the morning of postoperative day one, the patient was continued on 1 ounce of water or ice every half hour. During the first day, the patient did fairly well, having some incisional pain, but able to ambulate adequately and to tolerate liquids well. Since the patient is doing well, we decided that the patient was ready to be discharged. The patient was given instructions to follow-up with me next week and to call my office for any fever over 101, persistent abdominal pain, nausea, vomiting, GERD, symptoms of DVT such as calf tenderness, or leg swelling, or pulmonary embolism such as chest pain or shortness of breath. The patient was also instructed to drink 40-60 ounces of liquids per day using the 1-ounce cups. The patient was given prescription for Tylenol for pain, Zofran prn for nausea, and pantoprazole and carafate. The patient was encouraged to ambulate and use the incentive spirometer. The patient was allowed to shower, but no baths, and encouraged to stay active at home. All of these instructions were given to the patient personally. All questions were answered and the patient understood all instructions, the instructions were also given to the patient in print. Total time spent providing and/or coordinating discharge services:15 Discharge coordination time: Less than 30 minutes Physical Exam Vital Signs: Vital Signs: Last Vital Signs Temp 98.8 F 05/27/20 10:20 Pulse 103 H 05/27/20 10:20 Resp 14 05/27/20 10:20 BP 153/93 H 05/27/20 10:20 Pulse Ox 98 05/27/20 10:20 Body Mass Index 37.0 DS: Data Data Completed and Pending Pending studies at discharge: Pending at discharge 05/27/20 09:03 Surgical [PTH] Routine Labs on day of discharge: Laboratory Results - last 24 hr 05/27/20 05/27/20 06:08 06:08 Urine Test NEGATIVE COVID-19 ([facility]) Negative COVID-19 Clin Com See Note
--- NOTE | 2020-05-27 10:34 | PM.PNGS ---
Subjective Subjective Date of Service: 05/28/20 Interval history: Patient has mild incisional pain but was able to ambulate and use the incentive spirometer. Is tolerating phase 1 bariatric diet. Physical Exam Vital Signs: Vital Signs: Last Vital Signs Temp 98.8 F 05/27/20 10:20 Pulse 110 H 05/27/20 10:30 Resp 16 05/27/20 10:30 BP 153/93 H 05/27/20 10:30 Pulse Ox 100 05/27/20 10:30 Body Mass Index 37.0 GI: Inspection: Yes normal to inspection, Yes incision (clean, dry and intact) and Yes obesity Extrem: Right lower extremity: normal to inspection (no calf tenderness) Left lower extremity: normal to inspection (no calf tenderness) Progress Note: A&P Assessment and plan (1) Obesity: Status: Acute (2) BMI 37.0-37.9, adult: Status: Acute (3) GERD (gastroesophageal reflux disease): Status: Acute (4) Esophagitis: Status: Acute (5) S/P laparoscopic sleeve gastrectomy: Status: Acute Assessment and Plan: 40 year old Female was admitted 05/27/2020 with morbid obesity and comorbidities. Problem 1: s/p laparoscopic sleeve gastrectomy, repair of incarcerated diaphragmatic hernia, gastropexy and lysis of adhesions Status: Doing well Plan: Check am labs, If OK, will begin phase 1 bariatric diet. (6) Status post repair of paraesophageal diaphragmatic hernia: Status: Acute (7) Diaphragmatic hernia: Status: Acute (8) Steatosis, liver: Status: Acute (9) Liver fibrosis: Status: Acute (10) Asthma: Status: Inactive Fall Risk Details Current Medications: Current Medications Generic Name Dose Route Start Last Admin Trade Name Freq PRN Reason Stop Dose Admin Albuterol Sulfate 2.5 mg 05/27/20 05:43 Albuterol Sulfate (0.083%) 2.5 Mg/3 Ml Vial.Neb INHALE ONCE PRN Shortness of Breath/Wheezing Fentanyl 25 mcg 05/27/20 07:35 Fentanyl Citrate/Pf 100 Mcg/2 Ml Vial IVPUSH Q5M PRN Pain, Moderate (Pain Scale 4-6 Hydromorphone HCl 0.25 mg 05/27/20 07:35 Hydromorphone Hcl 0.5 Mg/0.5 Ml Syringe IVPUSH Q5M PRN Pain, Severe (Pain Scale 7-10) Lactated Ringer's 1,000 mls @ 100 mls/hr 05/27/20 05:45 05/27/20 06:49 Lr IVCONT 100 mls/hr .Q10H JODIE Administration Promethazine HCl 6.25 mg/ 50.25 mls @ 201 mls/hr 05/27/20 07:35 Sodium Chloride IV ONCE PRN Nausea and Vomiting Ondansetron HCl 4 mg 05/27/20 07:35 Ondansetron Hcl 4 Mg/2 Ml Vial IVPUSH ONCE PRN Nausea and Vomiting Time Spent With Patient Time: Total time spent is greater than 50% in coordination of care (as documented) at patient's floor/unit and/or counseling patient: Time with patient: less than 15 minutes
[2020-05-27] MEDS: HYDROmorphone HCl 0.5 MG/0.5 ML SYRINGE 0.25 MG IVPUSH ×3 (10:55→20:29)
[2020-05-27 11:38] LABS: Hematocrit 48.4 % (37-47); Hemoglobin 15.3 g/dl (12.0-16.0)
[2020-05-27 12:59] LABS: Anion Gap 12 (12-20); Blood Urea Nitrogen 8 mg/dL (9-16); Calcium 8.5 mg/dL (8.4-10.2); Carbon Dioxide 25 mmol/L (22-29); Chloride 105 mmol/L (96-108); Creatinine Clr Calc Pharmacy 68.9; Estimated Glomerular Filt Rate 46; Glucose Random 148 mg/dL (60-115); Potassium 4.4 mmol/L (3.3-5.1); Sodium 138 mmol/L (135-145)
[2020-05-27] MEDS: Famotidine/PF 20 MG/2 ML VIAL IVPUSH ×2 (13:13→20:29)
[2020-05-27] MEDS: ondansetron HCL 4 MG/2 ML VIAL IVPUSH ×2 (13:14→20:30)
[2020-05-27] MEDS: Lactated Ringers 1,000 ML 125 ML IVCONT ×2 (13:14→20:42)
[2020-05-27] MEDS: ceFAZolin Sodium/Dextrose,Iso 2 GM/50 ML PIGGYBACK IV (13:14)
[2020-05-27] MEDS: 0.9 % Sodium Chloride Flush 3 ML SYRINGE IVFLUSH (20:39)
[2020-05-28 04:00] VITALS: BP 127/68; PULSE 83; RESP 16; TEMP 37; O2SAT 97
[2020-05-28] MEDS: ondansetron HCL 4 MG/2 ML VIAL IVPUSH (04:26)
[2020-05-28] MEDS: Lactated Ringers 1,000 ML 125 ML IVCONT (04:26)
[2020-05-28 04:46] LABS: MANUAL DIFF FLAG NO
[2020-05-28 04:51] LABS: Basophils Percent Auto 0.1 % (0-2); Eosinophils Percent Auto 0.1 % (0-4); Hematocrit 39.9 % (37-47); Hemoglobin 12.8 g/dl (12.0-16.0); Imm Gran Abs Auto 0.08 X10*3/uL (0.00-0.03); Imm Gran Pct Auto 0.4 % (0.0-0.4); Lymphocytes Absolute Auto 1.6 X10*3/uL (1.2-4.9); Lymphocytes Percent Auto 8.6 % (20-40); Mean Corpuscular HGB Conc 32.1 g/dl (31.0-35.0); Mean Corpuscular Hemoglobin 30.2 pg (27.0-33.0); Mean Corpuscular Volume 94.1 fL (80-98); Mean Platelet Volume 9.6 fL (9.4-12.3); Monocytes Absolute Auto 1.2 X10*3/uL (0.1-1.2); Monocytes Percent Auto 6.2 % (2-11); Neutrophils Absolute Auto 16.2 X10*3/uL (2.0-8.3); Neutrophils Percent Auto 84.6 % (45-73); Platelet Count 358 X10*3/uL (160-400); Red Blood Count 4.24 X10*6/uL (4.20-5.50); Red Cell Distribution Width 12.3 % (11.0-16.0); White Blood Count 19.2 X10*3/uL (4.8-10.8)
[2020-05-28 05:29] LABS: Anion Gap 12 (12-20); Blood Urea Nitrogen 8 mg/dL (9-16); Calcium 8.8 mg/dL (8.4-10.2); Carbon Dioxide 22 mmol/L (22-29); Chloride 108 mmol/L (96-108); Creatinine Clr Calc Pharmacy 91.7; Estimated Glomerular Filt Rate > 60; Glucose Random 98 mg/dL (60-115); Potassium 4.5 mmol/L (3.3-5.1); Sodium 137 mmol/L (135-145)
[2020-05-28 07:35] VITALS: O2SAT 97
[2020-05-28] MEDS: Famotidine/PF 20 MG/2 ML VIAL IVPUSH (07:40)
[2020-05-28 08:00] VITALS: BP 131/82; PULSE 94; RESP 18; TEMP 36.4; O2SAT 95
--- NOTE | 2020-05-28 09:29 | MHC.CM.PN ---
This policy writer unable to meet with pt, left before being seen. Home no services.
--- NOTE | 2020-05-28 15:13 | HO.POSTANES ---
Post Anesthesia Evaluation Post Anesthesia Evaluation Vital Signs: Vital Signs Temp Pulse Resp BP Pulse Ox 05/28/20 08:00 97.5 F 94 18 131/82 95 05/28/20 07:35 97 05/28/20 04:00 98.6 F 83 16 127/68 97 Anesthesia: General Endotracheal-GETA Mental Status: Awake Pain Control: Satisfactory Nausea/Vomiting: None Hydration: Adequate Anesthesia-Related Issues: No Anes. Related Issues
== END 2020-05-28 09:07 | disposition home or self-care (01) | DRG 403 ==
LOC: HO.SSSA 10:30 → HO.S3 11:24
PROVIDERS: Nurse Practitioner; Physician Assistant; Admitting Provider Surgery; Visit Provider Surgery
PROC: 0DB64Z3 Excision of Stomach, Percutaneous Endoscopic Approach, Vertical (ICD-10-PCS; CPT 43845; principal; 2020-05-27 07:30)
DX: E66.01 Morbid (severe) obesity due to excess calories (principal); K74.00 Hepatic fibrosis, unspecified; K44.0 Diaphragmatic hernia with obstruction, without gangrene; E78.1 Pure hyperglyceridemia; K76.0 Fatty (change of) liver, not elsewhere classified; J45.909 Unspecified asthma, uncomplicated; K66.0 Peritoneal adhesions (postprocedural) (postinfection); K21.9 Gastro-esophageal reflux disease without esophagitis; F32.9 Major depressive disorder, single episode, unspecified; Z68.37 Body mass index [BMI] 37.0-37.9, adult; Z20.822 Contact with and (suspected) exposure to COVID-19; Z79.899 Other long term (current) drug therapy
CPT/HCPCS: 36415; 80048; 81025; 85014; 85018; 85025; 86850; 86900; 87635; 88307; 88342; 99024; A4649; J0131; J0690; J1100; J1170; J2250; J2405; J2550; J3010

== ENCOUNTER → 2020-06-04 07:03 | Outpatient (BNVA) | payer OTHER, SELFPAY | PROVIDERS: Visit Provider Surgery | DX: E66.9 Obesity, unspecified (principal); Z68.34 Body mass index [BMI] 34.0-34.9, adult | CPT/HCPCS: 99212 ==

== ENCOUNTER → 2020-07-04 07:57 | Outpatient (BNVA) | payer OTHER, SELFPAY | PROVIDERS: Visit Provider Surgery | DX: E66.9 Obesity, unspecified (principal); Z68.33 Body mass index [BMI] 33.0-33.9, adult | CPT/HCPCS: 99212 ==

== ENCOUNTER → 2020-08-20 07:25 | Outpatient (BNVA) | payer OTHER, SELFPAY | PROVIDERS: Visit Provider Surgery | DX: E66.9 Obesity, unspecified (principal); Z68.31 Body mass index [BMI] 31.0-31.9, adult | CPT/HCPCS: 99212 ==